=== PATIENT | female | born 1975 | race Caucasian/White ===

== ENCOUNTER 2016-03-27 11:32 | Emergency (ER) | payer BC ==
[2016-03-27] MEDS ORDERED: ASPIRIN 81 MG CHEW TAB ONE (11:49)
[2016-03-27] MEDS ORDERED: SODIUM CHLORIDE 0.9% 1,000 ML ONE (12:31)
[2016-03-27] MEDS ORDERED: Meclizine HCl 25 MG TAB ONE (13:35)
[2016-03-27] MEDS ORDERED: ALBUTEROL HFA INH ONE (14:46)
== END 2016-03-27 15:35 | disposition home or self-care (01) ==
LOC: ER 11:32
DX: R42 Dizziness and giddiness (principal)
CPT/HCPCS: 36415; 70450; 71010; 80053; 82550; 83735; 84484; 85025; 85610; 85730; 87804; 93005; 94640; 96360; 96361